=== PATIENT | female | born 1995 | race Caucasian/White ===

== ENCOUNTER 2022-05-27 13:47 | Outpatient (CLI) | payer MEDICAID, SELFPAY ==
[2022-05-28 00:31] LABS: Chlamydia DNA Amplified* NOT DETECTED (No Detected); GC DNA Amplified* NOT DETECTED (No Detected)
== END 2022-05-27 13:48 | disposition home or self-care (01) ==
LOC: FRMREF 13:47
PROVIDERS: Visit Provider Family Medicine
DX: N76.0 Acute vaginitis (principal)
CPT/HCPCS: 87086; 87491; 87591

== ENCOUNTER 2023-08-08 15:11 | Emergency (ER) | payer OTHER, MEDICAID, SELFPAY ==
[2023-08-08 15:21] VITALS: BP 116/72; PULSE 86; RESP 18; TEMP 36.4; O2SAT 100; BMI 23.6
== END 2023-08-08 15:37 | disposition home or self-care (01) ==
PROVIDERS: Emergency Provider Family Medicine
DX: Z53.21 Procedure and treatment not carried out due to patient leaving prior to being seen by health care provider (principal)

== ENCOUNTER 2025-01-09 15:45 | Outpatient (CLI) | payer MEDICAID, SELFPAY | END 2025-01-09 15:46 | disposition home or self-care (01) | PROVIDERS: Visit Provider Advanced Practice Midwife | DX: Z34.81 Encounter for supervision of other normal pregnancy, first trimester (principal); Z67.40 Type O blood, Rh positive | CPT/HCPCS: 76817; 83020; 83021; 85660; 86592; 86703; 86704; 86706; 86762; 86787; 86803; 86850; 86900; 86901; 87086; 87340 ==

== ENCOUNTER 2025-01-29 09:33 | Outpatient (CLI) | payer MEDICAID, SELFPAY ==
[2025-01-29 16:57] LABS: Chlamydia DNA Amplified* NOT DETECTED (No Detected); GC DNA Amplified* NOT DETECTED (No Detected)
== END 2025-01-29 09:34 | disposition home or self-care (01) ==
PROVIDERS: Visit Provider Obstetrics & Gynecology
DX: Z34.91 Encounter for supervision of normal pregnancy, unspecified, first trimester (principal)
CPT/HCPCS: 87491; 87591